=== PATIENT | male | born 1995 | race Caucasian/White ===

== ENCOUNTER 2017-11-08 07:57 | Emergency (ER) | payer MEDICAID ==
[~2017-11-08] VITALS: Ht 172.7 cm; Wt 114.5 kg
[~2017-11-08 07:57] MED LIST: AMOX875 PO; ANTISOL30 RIGHT EAR
[2017-11-08 08:00] VITALS: BP 155/73; PULSE 87; RESP 16; TEMP 97.8; O2SAT 94
[2017-11-08] MEDS ORDERED: EPIP0.3I IM (08:07)
--- NOTE | 2017-11-08 08:34 | PD ---
HPI Chief Complaint: ENT Complaint Time Seen by Provider: 08:29 Travel History International Travel<30 days: No Contact w/Intl Traveler<30days: No Traveled to known affect area: No History of Present Illness HPI 22-year-old male patient presents to the ER today with 2 days history of cough, sore throat, nasal congestion, and fevers of 101.7 last night. He states he has sick contacts in [place]. He denies any nausea, vomiting, diarrhea, abdominal pains, or any other issues. He has been taking Tylenol, Chloraseptic for symptom relief. Modifying Factors: None Associated Signs & Symptoms: Cough, cold symptoms, fevers Risk Factors: Sick contacts History Social History Alcohol Use: No Tobacco Use: No Allergies-Medications (Allergen,Severity, Reaction): Coded Allergies: peanut (Verified Allergy, Severe, meghna coleman, 11/08/17) Reported Meds & Prescriptions Reported Meds & Active Scripts Active Reported Epipen 2-Bart Inj (Epinephrine) 0.3 Mg/0.3 Ml Pfpen 0.3 Mg IM ONCE PRN Review of Systems Except as stated in HPI: all other systems reviewed are Neg Physical Exam Narrative GENERAL: Well-developed young male patient currently in no acute distress. Awake and oriented 3. SKIN: Focused skin assessment warm/dry. HEAD: Atraumatic. Normocephalic. EYES: Pupils equal and round. No scleral icterus. No injection or drainage. ENT: Mucosa pink and moist. Mild erythema or exudates, notable for soft palate vesicles. No uvular edema. No uvular, palatal, or tonsillar deviation. Airway patent. Nasal turbinates appear normal without nasal blood, purulent drainage or septal hematoma. NECK: Trachea midline. No JVD. Supple. CARDIOVASCULAR: Regular rate and rhythm. No murmur appreciated. RESPIRATORY: No accessory muscle use. Clear to auscultation. Breath sounds equal bilaterally. GASTROINTESTINAL: Abdomen soft, non-tender, nondistended. Hepatic and splenic margins not palpable. MUSCULOSKELETAL: No obvious deformities. No clubbing. No cyanosis. No edema. NEUROLOGICAL: Awake and alert. No obvious cranial nerve deficits. Motor grossly within normal limits. Normal speech. PSYCHIATRIC: Appropriate mood and affect; insight and judgment normal. Data Data Last Documented VS Vital Signs Date Time Temp Pulse Resp B/P (MAP) Pulse Ox O2 Delivery O2 Flow Rate FiO2 11/08/17 08:00 97.8 87 16 155/73 (100) 94 MDM Medical Screen Exam Complete: Yes Emergency Medical Condition: No Differential Diagnosis URI versus influenza versus strep pharyngitis Narrative Course Considering patient's symptoms, I'm not suspecting influenza or strep pharyngitis in this case. Symptoms are more indicative of a URI of viral etiology. No signs of pneumonia or other acute processes were identified on exam. Vital signs are stable. At this point, I do not see any signs of an emergent medical condition. Patient should return should he have any worsening in condition, fevers, respiratory distress, vomiting, or new issues as needed. Primary Impression: URI (upper respiratory infection) Disposition: [facility]GO-ED USE ONLY Condition: Stable Alonzo Salinas MD Nov 08, 2017 08:34
== END 2017-11-08 08:44 | disposition left against medical advice (07) ==
LOC: PHEFT 07:57
DX: J06.9 Acute upper respiratory infection, unspecified (principal); R05 Cough; R07.0 Pain in throat; R09.81 Nasal congestion; R50.9 Fever, unspecified
CPT/HCPCS: 99281